=== PATIENT | male | born 1975 | race Caucasian/White ===

== ENCOUNTER 2020-08-30 16:22 | Emergency (ER) | payer OTHER ==
[2020-08-30 16:29] VITALS: RESP 18
[2020-08-30] MEDS ORDERED: SODIUM CHLORIDE 0.9% 500 ML 500 ML IV STA (16:52)
[2020-08-30] MEDS ORDERED: ONDANSETRON 4 MG/2 ML VIAL IVP STA (16:53)
[2020-08-30 17:15] LABS: Glucose,Whole Blood 126 mg/dL (75-99)
[2020-08-30 17:27] LABS: Basophils # (A) 0.1 k/uL (0-0.2); Basophils % (A) 0 %; Eosinophils # (A) 0.4 k/uL (0-0.7); Eosinophils % (A) 2 %; HCT 49.2 % (39.0-53.0); HGB 15.9 gm/dL (13.0-17.5); Lymphocytes # (A) 0.8 k/uL (1.0-4.8); Lymphocytes % (A) 4 %; MCH 32.3 pg (25.0-35.0); MCHC 32.4 g/dL (31.0-37.0); MCV 99.8 fL (80.0-100.0); Mean Platelet Volume 8.6; Monocytes # (A) 0.7 k/uL (0-1.0); Monocytes % (A) 4 %; Neutrophils # (A) 18.9 k/uL (1.3-7.7); Neutrophils % (A) 90 %; Platelet Count 200 k/uL (150-450); RBC 4.93 m/uL (4.30-5.90); RDW 12.6 % (11.5-15.5); WBC 20.9 k/uL (3.8-10.6)
--- NOTE | 2020-08-30 17:33 | CT ---
EXAMINATION TYPE: CT brain wo con DATE OF EXAM: 08/30/2020 COMPARISON: None HISTORY: Altered mental status. CT DLP: 1144.4 mGycm Automated exposure control for dose reduction was used. Ventricles have normal size. There is no mass effect nor midline shift. There is no sign of intracran ial hemorrhage. Calvarium is intact. There is no evidence of cerebral edema. IMPRESSION: Negative unenhanced head CT scan.
[2020-08-30 17:35] LABS: ALT 22 U/L (4-49); AST 28 U/L (17-59); African American GFR (CKD) >90 (>60 ml/min/1.73 sqM); Albumin 4.7 g/dL (3.5-5.0); Alcohol <10 mg/dL; Alkaline Phosphatase 90 U/L (38-126); Anion Gap 7 mmol/L; Blood Urea Nitrogen 15 mg/dL (9-20); Calcium 9.8 mg/dL (8.4-10.2); Carbon Dioxide 27 mmol/L (22-30); Chloride 105 mmol/L (98-107); Glucose 125 mg/dL (74-99); Non-African American GFR(CKD) 87 (>60 ml/min/1.73 sqM); Potassium 4.7 mmol/L (3.5-5.1); Sodium 139 mmol/L (137-145); Total Bilirubin 0.3 mg/dL (0.2-1.3); Total Protein 7.9 g/dL (6.3-8.2)
--- NOTE | 2020-08-30 17:44 | XR ---
EXAMINATION TYPE: XR chest 2V DATE OF EXAM: 08/30/2020 COMPARISON: NONE HISTORY: Allergic reaction. Seizure TECHNIQUE: FINDINGS: Heart and mediastinum are normal. Lungs are clear. Diaphragm is normal. Bony thorax is norm al. IMPRESSION: Normal chest.
[2020-08-30] MEDS ORDERED: DIAZEPAM 5 MG/ML 2 ML INJ IVP STA (18:21)
[2020-08-30] MEDS ORDERED: SODIUM CHLORIDE 0.9% 1,000 ML IV STA (18:21)
[2020-08-30 18:39] LABS: Appearance,Urine Clear (Clear); Bilirubin,Urine Negative (Negative); Blood,Urine Negative (Negative); Color,Urine Yellow; Glucose,Urine (UA) Negative (Negative); Ketones,Urine Negative (Negative); Leukocyte Esterase,Urine Negative (Negative); Nitrite,Urine Negative (Negative); PH, Urine 5.5 (5.0-8.0); Protein,Urine Trace (Negative); Specific Gravity,Urine 1.025 (1.001-1.035); Urobilinogen,Urine <2.0 mg/dL (<2.0)
[2020-08-30 18:41] LABS: Magnesium 1.7 mg/dL (1.6-2.3); Phosphorus 3.5 mg/dL (2.5-4.5)
[2020-08-30 19:10] LABS: Amphetamine Screen,Urine Not Detected (NotDetected); Barbiturate Screen,Urine Not Detected (NotDetected); Benzodiazepines Screen,Urine Detected (NotDetected); Cocaine Screen,Urine Not Detected (NotDetected); Methadone Screen, Urine Not Detected (NotDetected); Opiate Screen,Urine Not Detected (NotDetected); Oxycodone Screen, Urine Not Detected (NotDetected); Phencyclidine Screen,Urine Not Detected (NotDetected); Tricyclic Antidepressant,Urine Not Detected (NotDetected); Urn Cannabinoid Scrn Not Detected (NotDetected)
[2020-08-30] MEDS ORDERED: ACETAMINOPHEN TAB 325 MG TAB PO STA (19:11)
--- NOTE | 2020-08-30 19:46 | ED ---
General Adult HPI - General Chief complaint: Seizure Stated complaint: Allergic Reaction Time Seen by Provider: 08/30/20 16:33 Source: patient, RN notes reviewed, old records reviewed Mode of arrival: wheelchair Limitations: no limitations - History of Present Illness Initial comments: 45-year-old male patient presents ED for evaluation. Patient states that he has had some generalized pruritus for the last 2 days. Father reports that he found the patient upstairs having what appear to be seizure for a couple of minutes about 3 hours prior to presentation hospital. Patient was reportedly postictal for a short period after. Denies any head trauma or any other acute complaints. Denies drug or alcohol use. Denies prior seizure history. Denies any chest pain or shortness of breath. Systemic: Pt denies fatigue, fever/chills, rash. Pt denies weakness, night sweats, weight loss. Neuro: Pt denies headache, visual disturbances, pre-syncope. HEENT: Pt denies ocular discharge or irritation, otalgia, rhinorrhea, pharyngitis or notable lymphadenopathy. Cardiopulmonary: Pt denies chest pain, SOB, heart palpitations, dyspnea on exert ion. Abdominal/GI: Pt denies abdominal pain, n/v/d. : Pt denies dysuria, burning w/ urination, frequency/urgency. Denies new onset urinary or bowel incontinence. MSK: Pt denies myalgia, loss of strength or function in extremities. Neuro: Pt denies new onset weakness, paresthesias. - Related Data Home Medications Medication Instructions Recorded Confirmed ALPRAZolam [Xanax] 1 mg PO BID PRN 08/10/16 08/17/16 Doxycycline(Dose Unknown) 1 tab PO BID PRN 08/10/16 08/17/16 Escitalopram Oxalate [Lexapro] 10 mg PO DAILY 08/10/16 08/17/16 Hydrocodone/Acetaminophen [[place] 1 tab PO Q4-6H PRN 08/10/16 08/17/16 10-325] Lipitor(Dose Unknown) 1 tab PO DAILY 08/10/16 08/17/16 Previous Rx's Medication Instructions Recorded Aspirin 325 mg PO DAILY #30 tab 08/19/16 HYDROcodone/APAP 10-325MG [[place] 1 - 2 tab PO Q4-6H PRN #60 tab 08/19/16 10-325] Sennosides-Docusate Sodium 2 tab PO DAILY #30 tablet 08/19/16 [Senokot-S] Warfarin [Coumadin] 2.5 mg PO DIRECTED #30 tab 08/19/16 hydrOXYzine pamoate [Vistaril] 25 mg PO TID PRN #60 cap 08/19/16 Allergies Allergy/AdvReac Type Severity Reaction Status Date / Time shellfish derived [Shellfish] Allergy Rash/Hives Verified 08/30/20 16:29 Review of Systems ROS Statement: Those systems with pertinent positive or pertinent negative responses have been documented in the HPI. ROS Other: All systems not noted in ROS Statement are negative. Past Medical History Past Medical History: GERD/Reflux, Osteoarthritis (OA), Skin Disorder Additional Past Medical History / Comment(s): acne, roseacea, History of Any Multi-Drug Resistant Organisms: None Reported Additional Past Surgical History / Comment(s): colonoscopy Past Anesthesia/Blood Transfusion Reactions: No Reported Reaction Past Psychological History: Anxiety, Depression Smoking Status: Current every day smoker Past Alcohol Use History: None Reported Past Drug Use History: None Reported - Past Family History Mother Family Medical History: Cancer General Exam - General Exam Comments Initial Comments: Constitutional: NAD, AOX3, Pt has pleasant affect. HEENT: NC/AT, trachea midline, neck supple, no lymphadenopathy.. External ears appear normal, without discharge. Mucous membranes moist. Eyes PERRLA, EOM intact. There is no scleral icterus. No pallor noted. Cardiopulmonary: RRR, no murmurs, rubs or gallops, no JVD noted. Lungs CTAB in anterior and posterior hermosillo. No peripheral edema. Abdominal exam: Abdomen soft and non-distended. Abdomen non-tender to palpation in all 4 quadrants. Bowel sounds active in LLQ. No hepatosplenomegaly. No ecchymosis Neuro: CN II-XII intact. No nuchal rigidity. No raccon eyes, no johnston sign, no hemotympanum. No cervical spinal tenderness. MSK: No posterior calf tenderness bilaterally, homans sign negative bilaterally. Posterior tibialis and radial pulse +2 bilaterally. Sensation intact in upper and lower extremities. Full active ROM in upper and lower extremities, 5/5 stregnth. Limitations: no limitations Course Vital Signs 08/30/20 08/30/20 08/30/20 16:26 18:38 19:28 Temperature 98.1 F Pulse Rate 113 H 114 H 106 H Respiratory 18 18 18 Rate Blood Pressure 155/95 140/96 126/95 O2 Sat by Pulse 96 98 95 Oximetry Medical Decision Making - Medical Decision Making 45-year-old male patient to ED for evaluation possible seizure. Patient vital signs display mild tachycardia. Physical exam is negative acute pathology. Of investigations revealed mild leukocytosis. Benzodiazepines are positive and drug screen. CT brain without contrast negative. Chest x-ray negative for ac clementine process. EKG sinus tachycardia. Patient will be discharged with close outpatient follow-up with primary care provider tomorrow. Advised not to drive for at least 6 months or until clearance by primary care provider or neurologist. Return for any worsening symptoms. Case discussed with Dr. Heather romero. - Lab Data Result diagrams: 08/30/20 17:17 08/30/20 17:17 Lab Results 08/30/20 08/30/20 08/30/20 Range/Units 17:13 17:17 17:17 WBC 20.9 H (3.8-10.6) k/uL RBC 4.93 (4.30-5.90) m/uL Hgb 15.9 (13.0-17.5) gm/dL Hct 49.2 (39.0-53.0) % MCV 99.8 (80.0-100.0) fL MCH 32.3 (25.0-35.0) pg MCHC 32.4 (31.0-37.0) g/dL RDW 12.6 (11.5-15.5) % Plt Count 200 (150-450) k/uL Neutrophils % 90 % Lymphocytes % 4 % Monocytes % 4 % Eosinophils % 2 % Basophils % 0 % Neutrophils # 18.9 H (1.3-7.7) k/uL Lymphocytes # 0.8 L (1.0-4.8) k/uL Monocytes # 0.7 (0-1.0) k/uL Eosinophils # 0.4 (0-0.7) k/uL Basophils # 0.1 (0-0.2) k/uL Sodium (137-145) mmol/L Potassium (3.5-5.1) mmol/L Chloride (98-107) mmol/L Carbon Dioxide (22-30) mmol/L Anion Gap mmol/L BUN (9-20) mg/dL Creatinine (0.66-1.25) mg/dL Est GFR (CKD-EPI)AfAm (>60 ml/min/1.73 sqM) Est GFR (CKD-EPI)NonAf (>60 ml/min/1.73 sqM) Glucose (74-99) mg/dL POC Glucose (mg/dL) 126 H (75-99) mg/dL POC Glu Central Office Inspector ID Magdiel Weinberg Plasma Lactic Acid Adama (0.7-2.0) mmol/L Calcium (8.4-10.2) mg/dL Phosphorus (2.5-4.5) mg/dL Magnesium (1.6-2.3) mg/dL Total Bilirubin (0.2-1.3) mg/dL AST (17-59) U/L ALT (4-49) U/L Alkaline Phosphatase (38-126) U/L Creatine Kinase (55-170) U/L Total Protein (6.3-8.2) g/dL Albumin (3.5-5.0) g/dL Urine Color Yellow Urine Appearance Clear (Clear) Urine pH 5.5 (5.0-8.0) Ur Specific [place] 1.025 (1.001-1.035) Urine Protein Trace H (Negative) Urine Glucose (UA) Negative (Negative) Urine Ketones Negative (Negative) Urine Blood Negative (Negative) Urine Nitrite Negative (Negative) Urine Bilirubin Negative (Negative) Urine Urobilinogen <2.0 (<2.0) mg/dL Ur Leukocyte Esterase Negative (Negative) Urine Opiates Screen Not Detected (NotDetected) Ur Oxycodone Screen Not Detected (NotDetected) Urine Methadone Screen Not Detected (NotDetected) Ur Propoxyphene Screen Not Detected (NotDetected) Ur Barbiturates Screen Not Detected (NotDetected) U Tricyclic Antidepress Not Detected (NotDetected) Ur Phencyclidine Scrn Not Detected (NotDetected) Ur Amphetamines Screen Not Detected (NotDetected) U Methamphetamines Scrn Not Detected (NotDetected) U Benzodiazepines Scrn Detected H (NotDetected) Urine Cocaine Screen Not Detected (NotDetected) U Marijuana (THC) Screen Not Detected (NotDetected) Serum Alcohol mg/dL 08/30/20 08/30/20 08/30/20 Range/Units 17:17 17:17 18:14 WBC (3.8-10.6) k/uL RBC (4.30-5.90) m/uL Hgb (13.0-17.5) gm/dL Hct (39.0-53.0) % MCV (80.0-100.0) fL MCH (25.0-35.0) pg MCHC (31.0-37.0) g/dL RDW (11.5-15.5) % Plt Count (150-450) k/uL Neutrophils % % Lymphocytes % % Monocytes % % Eosinophils % % Basophils % % Neutrophils # (1.3-7.7) k/uL Lymphocytes # (1.0-4.8) k/uL Monocytes # (0-1.0) k/uL Eosinophils # (0-0.7) k/uL Basophils # (0-0.2) k/uL Sodium 139 (137-145) mmol/L Potassium 4.7 (3.5-5.1) mmol/L Chloride 105 (98-107) mmol/L Carbon Dioxide 27 (22-30) mmol/L Anion Gap 7 mmol/L BUN 15 (9-20) mg/dL Creatinine 1.02 (0.66-1.25) mg/dL Est GFR (CKD-EPI)AfAm >90 (>60 ml/min/1.73 sqM) Est GFR (CKD-EPI)NonAf 87 (>60 ml/min/1.73 sqM) Glucose 125 H (74-99) mg/dL POC Glucose (mg/dL) (75-99) mg/dL POC Glu Central Office Inspector ID Plasma Lactic Acid Adama 0.9 (0.7-2.0) mmol/L Calcium 9.8 (8.4-10.2) mg/dL Phosphorus 3.5 (2.5-4.5) mg/dL Magnesium 1.7 (1.6-2.3) mg/dL Total Bilirubin 0.3 (0.2-1.3) mg/dL AST 28 (17-59) U/L ALT 22 (4-49) U/L Alkaline Phosphatase 90 (38-126) U/L Creatine Kinase 88 (55-170) U/L Total Protein 7.9 (6.3-8.2) g/dL Albumin 4.7 (3.5-5.0) g/dL Urine Color Urine Appearance (Clear) Urine pH (5.0-8.0) Ur Specific [place] (1.001-1.035) Urine Protein (Negative) Urine Glucose (UA) (Negative) Urine Ketones (Negative) Urine Blood (Negative) Urine Nitrite (Negative) Urine Bilirubin (Negative) Urine Urobilinogen (<2.0) mg/dL Ur Leukocyte Esterase (Negative) Urine Opiates Screen (NotDetected) Ur Oxycodone Screen (NotDetected) Urine Methadone Screen (NotDetected) Ur Propoxyphene Screen (NotDetected) Ur Barbiturates Screen (NotDetected) U Tricyclic Antidepress (NotDetected) Ur Phencyclidine Scrn (NotDetected) Ur Amphetamines Screen (NotDetected) U Methamphetamines Scrn (NotDetected) U Benzodiazepines Scrn (NotDetected) Urine Cocaine Screen (NotDetected) U Marijuana (THC) Screen (NotDetected) Serum Alcohol <10 mg/dL Disposition Clinical Impression: Seizure Disposition: HOME SELF-CARE Condition: Stable Instructions (If sedation given, give patient instructions): New-Onset Seizure in Adults (ED) Additional Instructions: Follow up with PCP tomorrow. Return to ED with any worsening symptoms. No driving for 6 months or until clearance by PCP or neurologist. Is patient prescribed a controlled substance at d/c from ED?: No Referrals: Omar Greenberg DO [Primary Care Provider] - 1-2 days
[2020-08-30 20:09] VITALS: BP 136/97; PULSE 102; TEMP 98.2
== END 2020-08-30 20:09 | disposition home or self-care (01) ==
LOC: EC 16:22
DX: R56.9 Unspecified convulsions (principal); F41.9 Anxiety disorder, unspecified; F32.9 Major depressive disorder, single episode, unspecified; F17.200 Nicotine dependence, unspecified, uncomplicated; Z79.899 Other long term (current) drug therapy; Z91.013 Allergy to seafood
CPT/HCPCS: 36415; 93005; 80053; 82550; 83605; 83735; 84100; 85025; 81003; 80306; 80320; 71046; 70450; 99285; 96374; 96375; 96361 ×2; J3360; J2405

== ENCOUNTER 2021-01-07 12:42 | Emergency (ER) | payer OTHER ==
[2021-01-07 12:49] VITALS: RESP 18; TEMP 97.7
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
[2021-01-07 14:44] VITALS: BP 136/78; PULSE 100
== END 2021-01-07 14:44 | disposition home or self-care (01) ==
LOC: EC 12:42
DX: S39.012A Strain of muscle, fascia and tendon of lower back, initial encounter (principal); R51.9 Headache, unspecified; F41.9 Anxiety disorder, unspecified; F32.9 Major depressive disorder, single episode, unspecified; K21.9 Gastro-esophageal reflux disease without esophagitis; M19.90 Unspecified osteoarthritis, unspecified site; R41.0 Disorientation, unspecified; F17.200 Nicotine dependence, unspecified, uncomplicated; Z91.013 Allergy to seafood; Z79.899 Other long term (current) drug therapy; Z96.642 Presence of left artificial hip joint; V40.5XXA Car driver injured in collision with pedestrian or animal in traffic accident, initial encounter; Y92.410 Unspecified street and highway as the place of occurrence of the external cause; Y93.89 Activity, other specified
CPT/HCPCS: 70450; 72131; 99284

== ENCOUNTER → 2022-08-30 | Outpatient (CLI) | payer OTHER ==
[2022-08-30 15:19] LABS: HCT 46.5 % (39.6-50.0); HGB 15.3 g/dL (13.0-17.0); MCH 34.2 pg (27.0-32.0); MCHC 32.9 g/dL (32.0-37.0); MCV 103.8 fL (80.0-97.0); Mean Platelet Volume 10.5 fL (9.5-12.2); NRBC Per 100 WBC 0 /100 WBCS (0.0-0.0); Platelet Count 313 X 10*3/uL (140-440); RBC 4.48 X 10*6/uL (4.40-5.60); RDW 12.9 % (11.5-14.5); WBC 8.09 X 10*3/uL (4.50-10.00)
[2022-08-30 16:08] LABS: ALT 13 U/L (10-49); AST 23 U/L (14-35); African American GFR (CKD) 81.8 (60.0-200.0); Albumin 4.2 g/dL (3.8-4.9); Alkaline Phosphatase 80 U/L (41-126); Calcium 9.3 mg/dL (8.7-10.3); Carbon Dioxide 26.5 mmol/L (20.0-27.5); Chloride 104 mmol/L (96-109); Chol/HDL Ratio 5.14 Ratio; Glucose 83 mg/dL (70-110); LDL Cholesterol,Calculated 147.4 mg/dL (0.0-131.0); Non-African American GFR(CKD) 70.6 (60.0-200.0); Potassium 5.3 mmol/L (3.5-5.5); Sodium 141 mmol/L (135-145); Total Protein 7.2 g/dL (6.2-8.2)
[2022-08-30 17:28] LABS: Appearance,Urine Clear (Clear); Bilirubin,Urine Negative (Negative); Blood,Urine Negative (Negative); Color,Urine Yellow (Yellow); Ketones,Urine Negative (Negative); Nitrite,Urine Negative (Negative); Specific Gravity,Urine 1.026 (1.001-1.030); Urobilinogen,Urine 0.2 (0.2,1.0)
== END | disposition home or self-care (01) ==
LOC: LABWHC1 07:57
PROVIDERS: ATTEND Family Medicine
DX: Z00.00 Encounter for general adult medical examination without abnormal findings (principal)
CPT/HCPCS: 36415; 80053; 80061; 81003; 84153; 85027